=== PATIENT | male | born 1975 | race Two or more races ===

== ENCOUNTER 2023-03-11 01:35 | Emergency (ER) | payer MEDICAID ==
[~2023-03-11] VITALS: Ht 170.2 cm; Wt 77.3 kg
[2023-03-11] MEDS ORDERED: HYDROcodone/acetaminophen 5mg/325mg tablet PO ONE (04:00)
[2023-03-11] MEDS ORDERED: naproxen 500mg tablet PO ONE (04:00)
[2023-03-11] MEDS ORDERED: NAPR-56 PO (04:01)
[2023-03-11 04:15] VITALS: BP 128/74; PULSE 73; RESP 14; TEMP 98.1; O2SAT 98
== END 2023-03-11 04:17 | disposition home or self-care (01) ==
LOC: ER 01:38
DX: S93.401A Sprain of unspecified ligament of right ankle, initial encounter (principal); S80.02XA Contusion of left knee, initial encounter; Z90.49 Acquired absence of other specified parts of digestive tract; Z79.899 Other long term (current) drug therapy; W01.0XXA Fall on same level from slipping, tripping and stumbling without subsequent striking against object, initial encounter; Z91.81 History of falling; Y93.89 Activity, other specified; Y92.89 Other specified places as the place of occurrence of the external cause; Y99.8 Other external cause status
CPT/HCPCS: 71045; 73564; 73610; 93005; 99284; L0172